=== PATIENT | male | born 1980 | race Caucasian/White ===

== ENCOUNTER 2022-07-05 18:07 | Emergency (ER) | payer OTHER, SELFPAY ==
[2022-07-05] MEDS ORDERED: Morphine 4 MG/ML VIAL ONE (19:21)
[2022-07-05] MEDS ORDERED: predniSONE 20 MG TAB ONE (19:22)
== END 2022-07-05 20:05 | disposition home or self-care (01) ==
LOC: CSHERS 18:07
DX: M79.2 Neuralgia and neuritis, unspecified (principal)
CPT/HCPCS: 96372; 99283; J2270; J7512